=== PATIENT | female | born 1960 | race Caucasian/White ===

== ENCOUNTER 2016-06-14 09:20 | Day surgery (SDC) | payer BC ==
[2016-06-12 17:41] LABS: BASOPHILS 0.1 %; BASOPHILS ABSOLUTE 0.01 10/3/uL (0.0-0.16); EOSINOPHILS 1.4 %; HEMATOCRIT 45.2 % (36.0-48.0); HEMOGLOBIN 14.4 g/dL (12.0-16.0); IMMATURE GRANULOCYTES 0.3 %; IMMATURE GRANULOCYTES ABSOLUTE 0.02 10/3/uL (0.0-0.11); LYMPHOCYTES 32.3 %; LYMPHOCYTES ABSOLUTE 2.33 10/3/uL (0.67-4.30); MANUAL DIFF NO %; MEAN CORPUS HGB CONC 31.9 g/dL (32.0-36.0); MEAN CORPUSCULAR HEMOGLOB 27.7 pg (26.0-34.0); MEAN CORPUSCULAR VOLUME 86.9 fL (80-100); MEAN PLATELET VOLUME 11.3 fL (9.2-13.0); MONOCYTES 6.9 %; NEUTROPHILS ABSOLUTE 4.25 10/3/uL (2.02-8.40); PLATELET COUNT 250 10/3/uL (150-400); RBC DISTRIBUTION WIDTH 12.1 % (12.0-16.0); WHITE BLOOD CELLS 7.2 10/3/uL (4.5-10.5)
[2016-06-12 17:48] LABS: BUN (BLOOD UREA NITROGEN) 14 MG/DL (6-23); CALCIUM, SERUM 8.5 MG/DL (8.5-10.4); CHLORIDE, SERUM 105 MMOL/L (96-112); CO2 (CARBON DIOXIDE) 26 MMOL/L (24-34); CREATININE 0.63 MG/DL (0.55-1.02); GFR AFRICAN AMERICAN 115 ML/MIN (>=60); GFR NON AFRICAN AMERICAN 100 ML/MIN (>=60); GLUCOSE, SERUM 85 MG/DL (60-99); POTASSIUM, SERUM 4.2 MMOL/L (3.5-5.3); SODIUM, SERUM 142 MMOL/L (135-148)
--- NOTE | ~2016-06-14 | OP ---
Record Of Operation [facility] [address] [place]. [address] NAME: JULIO CESAR RAMOS : 56 STATUS : [facility]#: [id number] AGE: 55 ADM/REG DATE : 06/14/16 MR#: [id number] REPORT SERV DATE: 06/16/16 DICTATED BY: JOHN GRISSOM DATE: 06/16/16 REPORT STATUS : Draft TRANSCRIBED BY: MODL DATE: 06/16/16 DATE OF PROCEDURE: 06/14/2016 PREOPERATIVE DIAGNOSIS: Postmenopausal bleeding with cervical stenosis. POSTOPERATIVE DIAGNOSIS: Postmenopausal bleeding with cervical stenosis. PROCEDURES: Hysteroscopy, dilation and curettage under ultrasound guidance. CPT code 45078. SURGEON: John Grissom MD. ANESTHESIA: General. ESTIMATED BLOOD LOSS: Less than 10 mL. CRYSTALLOID: 500 mL. DRAINS: Cuenca. FINDINGS: Hyperplastic endometrium with no obvious polyps or masses noted, just a relatively hyperplastic endometrium. PATHOLOGY: Endometrial curettings. COMPLICATIONS: None. POSTOPERATIVE PLAN: Extubated to PACU. PROCEDURE IN DETAIL: After informed consent was signed, the patient was taken to the operating room, and placed in dorsal supine position, where adequate general anesthesia was administered. She was then placed in dorsal lithotomy position in Otto stirrups, and prepped and draped in the usual fashion. The anterior cervix was grasped with a tenaculum, and attempts were made to cannulate the endocervical canal, but however due to cervical stenosis, this necessitated stab incision with an 11-blade scalpel into the external cervical os. This was done under direct ultrasound guidance. The bladder was also distended with approximately 180 mL of normal saline to facilitate ultrasound visualization of the entire uterus. Under direct ultrasound guidance, the uterus was sounded to approximately 6 cm and the cervix was dilated to the appropriate size under direct ultrasound guidance. The hysteroscope was then placed through the endocervical canal into the endometrium. The endometrium was distended with appropriate media. Findings as above were noted. The hysteroscope was then removed, and the cervix was dilated further, again under direct ultrasound guidance. Four-quadrant sharp curettings were performed using a sharp curette, and the endometrial curettings were sent to pathology. This concluded the procedure. There was no evidence of uterine perforation by direct ultrasound guidance. The tenaculum was removed. An exam under anesthesia was performed, which did not reveal any abnormalities. The patient was placed back in dorsal supine position, awakened, extubated, Record Of Operation [address] [place]. [address] NAME: JULIO CESAR RAMOS : 56 STATUS : [facility] PAT#: [id number] AGE: 55 ADM/REG DATE : 06/14/16 MR#: [id number] REPORT SERV DATE: 06/16/16 DICTATED BY: JOHN GRISSOM DATE: 06/16/16 REPORT STATUS : Draft TRANSCRIBED BY: MODL DATE: 06/16/16 and sent to the PACU in stable condition. TB/XIAO John Grissom MD / [id number] CC: MD Lei Celestin M.D.
[~2016-06-14 09:20] MED LIST: ALLEGRA-D12 HOUR PO; B121000P IM; CYANO1000T PO; EZFE 200200 MG PO; FOLIC PO; GENPRIL200 MG PO; LEVBID PO; PROMETRIUM PO
[2016-09-01] MEDS ORDERED: COZAAR100 MG PO (14:27)
[2016-09-01] MEDS ORDERED: SPIRO25 PO (14:27)
[2016-09-01] MEDS ORDERED: NORV5 PO (14:30)
== END 2016-06-15 15:54 | disposition home or self-care (01) ==
LOC: SDC 09:20
PROVIDERS: Obstetrics & Gynecology Gynecology
PROC: 0UDB8ZZ Extraction of Endometrium, Via Natural or Artificial Opening Endoscopic (ICD-10-PCS; principal; 2016-06-14 10:15)
DX: M48.02 Spinal stenosis, cervical region (principal); N95.0 Postmenopausal bleeding; E66.01 Morbid (severe) obesity due to excess calories; I10 Essential (primary) hypertension; R51 Headache; K58.9 Irritable bowel syndrome, unspecified; E11.9 Type 2 diabetes mellitus without complications; J45.909 Unspecified asthma, uncomplicated; D64.9 Anemia, unspecified; E53.8 Deficiency of other specified B group vitamins; Z90.49 Acquired absence of other specified parts of digestive tract; Z79.899 Other long term (current) drug therapy; Z98.890 Other specified postprocedural states
CPT/HCPCS: 70450; 71020; 76856; 76857; 76998; 80048; 82962; 83735; 84484; 85025; 85610; 85730; 88305; 93005; 96374; 99285; A9270-GY; J0690; J1885; J2250; J2405; J3010

== ENCOUNTER 2016-09-06 09:39 | Day surgery (SDC) | payer BC ==
[2016-09-01 16:17] LABS: WBC (NOT ORDERED) (RFLEX) 0 (0-5)
[2016-09-01 16:28] LABS: BASOPHILS 0.1 %; BASOPHILS ABSOLUTE 0.01 10/3/uL (0.0-0.16); EOSINOPHILS 1.6 %; EOSINOPHILS ABSOLUTE 0.12 10/3/uL (0.0-0.53); HEMATOCRIT 43.7 % (36.0-48.0); HEMOGLOBIN 14.3 g/dL (12.0-16.0); IMMATURE GRANULOCYTES 0.4 %; IMMATURE GRANULOCYTES ABSOLUTE 0.03 10/3/uL (0.0-0.11); LYMPHOCYTES 30.1 %; LYMPHOCYTES ABSOLUTE 2.28 10/3/uL (0.67-4.30); MANUAL DIFF NO %; MEAN CORPUS HGB CONC 32.7 g/dL (32.0-36.0); MEAN CORPUSCULAR HEMOGLOB 27.5 pg (26.0-34.0); MEAN PLATELET VOLUME 10.4 fL (9.2-13.0); MONOCYTES 7.3 %; MONOCYTES ABSOLUTE 0.55 10/3/uL (0.21-1.20); NEUTROPHILS 60.5 %; NEUTROPHILS ABSOLUTE 4.58 10/3/uL (2.02-8.40); PLATELET COUNT 255 10/3/uL (150-400); RBC DISTRIBUTION WIDTH 15.4 % (12.0-16.0); WHITE BLOOD CELLS 7.6 10/3/uL (4.5-10.5)
[2016-09-01 16:38] LABS: PROTIME (NOT ORD) 13.4 SEC (12.0-14.5)
[2016-09-01 16:41] LABS: A/G RATIO 1.1 (0.7-1.9); ALBUMIN 3.6 G/DL (3.5-5.0); ALKALINE PHOSPHATASE 74 U/L (45-117); BUN (BLOOD UREA NITROGEN) 21 MG/DL (6-23); CALCIUM, SERUM 8.4 MG/DL (8.5-10.4); CHLORIDE, SERUM 107 MMOL/L (96-112); CO2 (CARBON DIOXIDE) 27 MMOL/L (24-34); GFR AFRICAN AMERICAN 82 ML/MIN (>=60); GFR NON AFRICAN AMERICAN 70 ML/MIN (>=60); GLOBULIN 3.4 G/DL (2.5-4.1); GLUCOSE, SERUM 93 MG/DL (60-99); POTASSIUM, SERUM 4.7 MMOL/L (3.5-5.3); SGOT(AST) 9 U/L (5-40); SGPT(ALT) 18 U/L (5-65); SODIUM, SERUM 140 MMOL/L (135-148); TOTAL BILIRUBIN 0.5 MG/DL (0-1.2)
[2016-09-01 16:43] LABS: ASCORBIC ACID (UR NOT ORDER) NEG (NEG); BILIRUBIN, URINE NEGATIVE (NEG); KETONE, URINE NEGATIVE (NEG); LEUKOCYTE ESTERASE(NOT OR NEG (NEG)
--- NOTE | ~2016-09-06 | OP ---
Record Of Operation [facility] [address] [place]. [address] NAME: JULIO CESAR RAMOS : 56 STATUS : [facility] PAT#: [id number] AGE: 56 ADM/REG DATE : 09/06/16 MR#: [id number] REPORT SERV DATE: 09/09/16 DICTATED BY: JOHN GRISSOM DATE: 09/08/16 REPORT STATUS : Draft TRANSCRIBED BY: MODSabine DATE: 09/08/16 DATE OF PROCEDURE: 09/06/2016 PREOPERATIVE DIAGNOSIS: Abnormal uterine bleeding refractory to medical management. POSTOPERATIVE DIAGNOSIS: Abnormal uterine bleeding refractory to medical management. PROCEDURE: Robot assisted laparoscopic hysterectomy with bilateral salpingo-oophorectomy. CPT code 94640. Cystoscopy. ANESTHESIA: General. ESTIMATED BLOOD LOSS: 25 mL. URINE OUTPUT: 25 mL. CRYSTALLOID: 1700 mL. DRAINS: Cuenca. FINDINGS: Grossly normal-appearing uterus, fallopian tubes, and ovaries. The uterus was opened at the bedside and found to have no neoplastic process present. PATHOLOGY: Uterus, uterine cervix, bilateral fallopian tubes, and ovaries. COMPLICATIONS: None. POSTOPERATIVE PLAN: Extubated to PACU. PROCEDURE IN DETAIL: After informed consent was signed, the patient was taken to the operating room and placed in dorsal supine position where adequate general anesthesia was administered. She was then placed in dorsal lithotomy position in Otto stirrups and prepped and draped in the usual fashion and a Cuenca catheter was placed. The uterus was sounded, cervix dilated, and the MENG uterine manipulator was assembled and deployed. The left upper quadrant incision was made with a scalpel and carried down to the fascia which was incised, muscle , posterior sheath entered sharply, trocar placed, and abdomen insufflated with CO2 gas. Additional robot trocars were placed in the bilateral upper quadrants and the supraumbilical region, all under direct visualization. The patient was then placed in steep Trendelenburg and the robot docked in usual fashion. Bilateral round ligaments were taken with bipolar cautery, transected with monopolar scissors, and the pelvic peritoneum was taken down lateral and parallel to the infundibulopelvic ligaments. With the ureters identified and reflected medially, clips were placed in the origins of the uterine arteries bilaterally. The IP ligaments were then isolated, taken with bipolar cautery, and transected with monopolar scissors, and the broad ligament taken down to the level of the cervix and the posterior colpotomy was made with monopolar scissors. Next, the vesicouterine peritoneum was incised and the bladder taken down well beneath the level of Record Of Operation [place] [id number] [facility] [place]. [address] NAME: JULIO CESAR RAMOS : 56 STATUS : [facility]#: [id number] AGE: 56 ADM/REG DATE : 09/06/16 MR#: [id number] REPORT SERV DATE: 09/09/16 DICTATED BY: JOHN GRISSOM DATE: 09/08/16 REPORT STATUS : Draft TRANSCRIBED BY: MODL DATE: 09/08/16 the anterior JEANNETTE ring and the anterior colpotomy was made. The uterine vessels were then taken at the cervix with bipolar cautery, transected with monopolar scissors, and the parametria reflected off the cervical stroma. The anterior and posterior colpotomies were then connected using monopolar scissors, and the uterus, uterine cervix, and bilateral adnexa were then brought out through the vagina. The pelvis was irrigated and found to be hemostatic, and the vagina was closed with 0 180 V-Loc suture with a running stitch. All instruments were then removed from the abdomen. The robot was undocked and CO2 gas evacuated. The Cuenca catheter was removed. Cystoscope placed through the urethra and the bladder distended with appropriate media. Bilateral brisk ureteral jets were noted suggesting bilateral ureteral patency. The cystoscope was removed and the bladder drained. The CO2 gas was then reintroduced into the abdomen. Laparoscope was inserted and the pelvis was re-examined and found to be hemostatic. The laparoscope and all trocars were then removed from the abdomen, and the fascia from the left upper quadrant incision was closed with 0 Vicryl suture and the skin from all trocar sites was closed with 4-0 Monocryl and Dermabond. The patient was taken out of steep Trendelenburg, placed back in dorsal supine position, awakened, extubated, and sent to the PACU in stable condition. Appropriate antibiotics were given prior to start of the procedure. ANATOLY/XIAO John Grissom MD / [id number] CC: John Grissom MD
[~2016-09-06 09:39] MED LIST changes: +COZAAR100 MG PO; +NORV5 PO; +SPIRO25 PO
== END 2016-09-06 19:51 | disposition home or self-care (01) ==
LOC: SDC 09:39
PROVIDERS: Obstetrics & Gynecology Gynecology
PROC: 0UT24ZZ Resection of Bilateral Ovaries, Percutaneous Endoscopic Approach (ICD-10-PCS; 2016-09-06)
PROC: 0UT74ZZ Resection of Bilateral Fallopian Tubes, Percutaneous Endoscopic Approach (ICD-10-PCS; 2016-09-06)
PROC: 0UT94ZZ Resection of Uterus, Percutaneous Endoscopic Approach (ICD-10-PCS; principal; 2016-09-06 12:15)
PROC: 0UTC4ZZ Resection of Cervix, Percutaneous Endoscopic Approach (ICD-10-PCS; 2016-09-06 12:15)
DX: N80.0 Endometriosis of uterus (principal); E66.9 Obesity, unspecified; Z90.49 Acquired absence of other specified parts of digestive tract; I10 Essential (primary) hypertension; D64.9 Anemia, unspecified; E11.9 Type 2 diabetes mellitus without complications; J45.909 Unspecified asthma, uncomplicated; Z98.890 Other specified postprocedural states
CPT/HCPCS: 36415; 80053; 81001; 82962; 85025; 85610; 85730; 86850; 86870; 86900; 86901; 86920; 86922; 88307; 93005; A9270-GY; J0694; J1885; J2250; J2405; J2550; J2710; J2795; J3010